=== PATIENT | male | born 1950 | race American Indian/Alaskan Native ===

== ENCOUNTER 2018-05-20 07:57 | Emergency (ER) | payer MEDICARE ==
--- NOTE | 2018-05-20 08:38 | Emergency Department Report ---
HPI - General Chief Complaint: Medical Clearance Time Seen by Provider: 05/20/18 08:28 - HPI HPI: Room 3 The patient is a 67-year-old male presenting with a chief complaint "pulled out trach. The patient is a resident of [facility] report the patient pulled out his trachea approximately 06:00 this morning. Per nursing, EMS placed a "cannula" in the stoma to keep it patent during transport. Location: Trach Duration: [See above] Quality: Dislodged Severity: Moderate Modifying factors: [see above] Context: [see above] Mode of transportation: [not driving] ED Past Medical Hx - Past Medical History Previous Medical History?: Yes Hx Hypertension: Yes Hx CVA: Yes Hx Congestive Heart Failure: Yes Hx Renal Disease: Yes Hx Seizures: Yes Additional medical history: Atrial fibrillation - Surgical History Past Surgical History?: Yes Additional Surgical History: Tracheostomy, PEG tube - Family History Family history: no significant - Social History Smoking Status: Unknown if ever smoked Substance Use Type: None ED Review of Systems ROS: Stated complaint: REPLACE TRACH Other details as noted in HPI Comment: Unobtainable due to pts medical conditions Physical Exam - Physical Exam Vital Signs: Vital Signs 05/20/18 05/20/18 08:15 08:22 Temperature 98.7 F 98.7 F Pulse Rate 75 Respiratory 12 Rate Blood Pressure 145/94 [Left] O2 Sat by Pulse 96 Oximetry Physical Exam: GENERAL: The patient is well-developed well-nourished male lying on stretcher not appearing to be in acute distress. [] HEENT: Normocephalic. Atraumatic. Extraocular motions are intact. Patient has moist mucous membranes. NECK: Supple. Trach collar in place CHEST/LUNGS: Clear to auscultation. There is no respiratory distress noted. HEART/CARDIOVASCULAR: Regular. There is no tachycardia. There is no gallop rub or murmur. ABDOMEN: Abdomen is soft, nontender. Patient has normal bowel sounds. There is no abdominal distention. SKIN: There is no rash. There is no edema. There is no diaphoresis. NEURO: The patient is awake and alert. MUSCULOSKELETAL: There is no evidence of acute injury. ED Course Vital Signs 05/20/18 05/20/18 08:15 08:22 Temperature 98.7 F 98.7 F Pulse Rate 75 Respiratory 12 Rate Blood Pressure 145/94 [Left] O2 Sat by Pulse 96 Oximetry ED Medical Decision Making - Radiology Data Radiology results: report reviewed (chest x-ray), image reviewed (chest x-ray) interpreted by me: Chest [id number] tube in appropriate position. No focal infiltrates, no pneumothorax [facility] [address] [place] [address] XRay Report Signed Patient: NOLVIA BONNER MR#: [id number] : 1950 Acct:[id number] Age/Sex: 67 / M ADM Date: 05/20/18 Loc: ED Attending Dr: Ordering Physician: RAMONA STALLINGS MD Date of Service: 05/20/18 Procedure(s): XR chest 1V ap Accession Number(s): [id number] cc: RAMONA STALLINGS MD Fluoro Time In Minutes: AP CHEST: HISTORY: Tracheostomy replacement Tracheostomy appears in good position at the level of the clavicles. Heart size is borderline. The aorta is ectatic. The lungs are clear. The bony structures are intact. IMPRESSION: Tracheostomy replacement. Borderline heart size. Ectatic aorta. Transcribed By: TTR Dictated By: RANDA LIMON JR, MD Electronically Authenticated By: RNADA LIMON JR, MD Signed Date/Time: 05/20/18945 DD/ 5 TD/TT: 05/20/18945 - Medical Decision Making Respiratory therapy was consult for trach replacement - Differential Diagnosis trach dislodged Critical care attestation.: If time is entered above; I have spent that time in minutes in the direct care of this critically ill patient, excluding procedure time. ED Disposition Clinical Impression: Attention to tracheostomy tube Disposition: DC/TX-70 ANOTHER TYPE HLTHCARE Is pt being admited?: No Does the pt Need Aspirin: No Condition: Stable Additional Instructions: Return to the emergency department immediately should you develop worsening symptoms, fever, inability to tolerate food or liquid or any other concerns. Referrals: PRIMARY CAREMD [Primary Care Provider] - 3-5 Days Time of Disposition: 09:51
--- NOTE | 2018-05-20 09:48 | XRay Report ---
AP CHEST: HISTORY: Tracheostomy replacement Tracheostomy appears in good position at the level of the clavicles. Heart size is borderline. The aorta is ectatic. The lungs are clear. The bony structures are intact. IMPRESSION: Tracheostomy replacement. Borderline heart size. Ectatic aorta.
[2018-05-20 11:22] VITALS: BP 116/76
== END 2018-05-20 11:10 | disposition other institution (70) ==
LOC: ED 07:57
DX: Z43.0 Encounter for attention to tracheostomy (principal); I11.0 Hypertensive heart disease with heart failure; I50.9 Heart failure, unspecified; I48.91 Unspecified atrial fibrillation; Z86.73 Personal history of transient ischemic attack (TIA), and cerebral infarction without residual deficits
CPT/HCPCS: 71045; 99283

== ENCOUNTER 2018-05-23 07:36 | Inpatient (IN) | payer MEDICARE ==
[2018-05-23] MEDS ORDERED: TYLENOL FEEDTUBE ONE (09:38)
[2018-05-23] MEDS ORDERED: NACL 0.9% 1000 ML 1,000 ML IV ONE (09:38)
[2018-05-23] MEDS ORDERED: NACL 0.9% 1000 ML 1,000 ML IV SCH (10:00)
[2018-05-23 10:11] LABS: Basophils # (Auto) 0.1 K/mm3 (0.0-0.1); Basophils % (Auto) 1.2 % (0.0-1.8); Eosinophils # (Auto) 0.1 K/mm3 (0.0-0.4); Eosinophils % (Auto) 1.2 % (0.0-4.3); Hematocrit 36.2 % (35.5-45.6); Hemoglobin 11.6 gm/dl (11.8-15.2); Lymphocytes # (Auto) 2.9 K/mm3 (1.2-5.4); Lymphocytes % (Auto) 28.8 % (13.4-35.0); Mean Corpuscular HGB Conc 32 % (32-34); Mean Corpuscular Hemoglobin 29 pg (28-32); Mean Corpuscular Volume 89 fl (84-94); Monocytes # (Auto) 1.1 K/mm3 (0.0-0.8); Monocytes % (Auto) 10.4 % (0.0-7.3); Platelet Count 548 K/mm3 (140-440); Red Blood Count 4.06 M/mm3 (3.65-5.03); Red Cell Distribution Width 20.7 % (13.2-15.2)
[2018-05-23 10:18] LABS: Alanine Aminotransferase 21 units/L (7-56); Albumin 3.2 g/dL (3.9-5); BUN/Creatinine Ratio 24; Blood Urea Nitrogen 31 mg/dL (9-20); Calcium 9.5 mg/dL (8.4-10.2); Hemolysis Index 0
--- NOTE | 2018-05-23 10:41 | Emergency Department Report ---
ED ENT HPI - General Chief complaint: Tube Replacement Stated complaint: TRACHEAL TUBE REMOVED Time Seen by Provider: 05/23/18 07:43 Source: EMS, old records reviewed Mode of arrival: Stretcher Limitations: Altered Mental Status, Physical Limitation - History of Present Illness Initial comments: 67-year-old male with a past medical history CHF, CVA, hypertension, A. fib, seizures, tracheostomy dependence presents to the hospital from [facility] in [place] for pulled out tracheostomy tube. Patient is in no acute distress. Nonverbal but follows basic commands. Previous medical record review and patient was here 04/27/18 for sepsis and tonsillitis with mild narrowing of the airway and was subsequently transferred to [place] for treatment. Represented here 05/20/18 with trach dislodgement. Replaced and pt d/ radha back to [place]. - Related Data Allergies Allergy/AdvReac Type Severity Reaction Status Date / Time No Known Allergies Allergy Unverified 04/27/18 16:07 ED Dental HPI - General Chief complaint: Tube Replacement Stated complaint: TRACHEAL TUBE REMOVED Time Seen by Provider: 05/23/18 07:43 Source: EMS, old records reviewed Mode of arrival: Stretcher Limitations: Altered Mental Status, Physical Limitation - Related Data Allergies Allergy/AdvReac Type Severity Reaction Status Date / Time No Known Allergies Allergy Unverified 04/27/18 16:07 ED Review of Systems ROS: Stated complaint: TRACHEAL TUBE REMOVED Other details as noted in HPI Comment: Unobtainable due to pts medical conditions (nonverbal) ED Past Medical Hx - Past Medical History Previous Medical History?: Yes Hx Hypertension: Yes Hx CVA: Yes Hx Congestive Heart Failure: Yes Hx Renal Disease: Yes Hx Seizures: Yes Additional medical history: Atrial fibrillation - Surgical History Past Surgical History?: Yes Additional Surgical History: Tracheostomy, PEG tube - Social History Smoking Status: Never Smoker Substance Use Type: None ED Physical Exam - General Limitations: Altered Mental Status, Physical Limitation - Other Other exam information: General: l physical limitation Head exam: Atraumatic, normocephalic Eyes exam: Normal appearancet ENT: Moist mucous membrane, tracheostomy stoma with part of trach in stoma Neck exam: Normal inspection, full range of motion, no meningismus nontender Respiratory exam: Clear to auscultation bilateral, no wheezes, rales, crackles no respiratory distress Cardiovascular: Tachycardic regular rhythm Abdomen: Soft, nondistended, positive headache. Nontender Extremity: Generalized muscle wasting and weakness Neurologic: Nonverbal. Overall weakness with muscle wasting. 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 Psychiatric: normal affect, normal mood Skin: Multiple decubitus ulcers without active signs of infection ED Course Vital Signs 05/23/18 05/23/18 05/23/18 07:53 07:54 08:00 Temperature 98.7 F Pulse Rate 105 H 106 H 103 H Respiratory 13 20 21 Rate Blood Pressure 127/93 122/86 O2 Sat by Pulse 99 98 Oximetry 05/23/18 05/23/18 05/23/18 09:00 09:34 10:00 Temperature 100.1 F H Pulse Rate 106 H 106 H Respiratory 22 23 Rate Blood Pressure 134/83 137/89 O2 Sat by Pulse 95 99 Oximetry 05/23/18 05/23/18 05/23/18 11:00 12:00 13:28 Temperature 98.4 F Pulse Rate 100 H 95 H Respiratory 19 19 Rate Blood Pressure 141/91 150/92 O2 Sat by Pulse 99 99 Oximetry - Consultations Consultation #1: 05/23/18 13:03 Case discussed with Barbara Urrutia with [facility]. Will evaluate patient. Repeat troponin pending 05/23/18 13:52 Rec admission for cardiac workup ED Medical Decision Making - Lab Data Result diagrams: 05/23/18 09:25 05/23/18 09:25 Lab Results 05/23/18 05/23/18 05/23/18 Range/Units 09:25 09:25 09:25 WBC 10.2 (4.5-11.0) K/mm3 RBC 4.06 (3.65-5.03) M/mm3 Hgb 11.6 L (11.8-15.2) gm/dl Hct 36.2 (35.5-45.6) % MCV 89 (84-94) fl MCH 29 (28-32) pg MCHC 32 (32-34) % RDW 20.7 H (13.2-15.2) % Plt Count 548 H (140-440) K/mm3 Lymph % (Auto) 28.8 (13.4-35.0) % Traill % (Auto) 10.4 H (0.0-7.3) % Eos % (Auto) 1.2 (0.0-4.3) % Baso % (Auto) 1.2 (0.0-1.8) % Lymph # 2.9 (1.2-5.4) K/mm3 Traill # 1.1 H (0.0-0.8) K/mm3 Eos # 0.1 (0.0-0.4) K/mm3 Baso # 0.1 (0.0-0.1) K/mm3 Seg Neutrophils % 58.4 (40.0-70.0) % Seg Neutrophils # 6.0 (1.8-7.7) K/mm3 VBG pH (7.320-7.420) Sodium 140 (137-145) mmol/L Potassium 4.5 (3.6-5.0) mmol/L Chloride 104.4 (98-107) mmol/L Carbon Dioxide 21 L (22-30) mmol/L Anion Gap 19 mmol/L BUN 31 H (9-20) mg/dL Creatinine 1.3 (0.8-1.5) mg/dL Estimated GFR > 60 ml/min BUN/Creatinine Ratio 24 % Glucose 110 H (75-100) mg/dL Lactic Acid (0.7-2.0) mmol/L Calcium 9.5 (8.4-10.2) mg/dL Magnesium 2.20 (1.7-2.3) mg/dL Total Bilirubin 0.70 (0.1-1.2) mg/dL AST 29 (5-40) units/L ALT 21 (7-56) units/L Alkaline Phosphatase 180 H (35-129) units/L Total Creatine Kinase 201 H (55-170) units/L CK-MB (CK-2) 33.8 H (0.0-4.0) ng/mL CK-MB (CK-2) Rel Index 16.8 H (0-4) Troponin T 0.281 H* (0.00-0.029) ng/mL Total Protein 8.7 H (6.3-8.2) g/dL Albumin 3.2 L (3.9-5) g/dL Albumin/Globulin Ratio 0.6 % Triglycerides 59 (2-149) mg/dL Cholesterol 112 (50-199) mg/dL LDL Cholesterol Direct 51 (50-130) mg/dL HDL Cholesterol 57 (40-59) mg/dL Cholesterol/HDL Ratio 1.96 % Urine Color (Yellow) Urine Turbidity (Clear) Urine pH (5.0-7.0) Ur Specific [place] (1.003-1.030) Urine Protein (Negative) mg/dL Urine Glucose (UA) (Negative) mg/dL Urine Ketones (Negative) mg/dL Urine Blood (Negative) Urine Nitrite (Negative) Urine Bilirubin (Negative) Urine Urobilinogen (<2.0) mg/dL Ur Leukocyte Esterase (Negative) Urine WBC (Auto) (0.0-6.0) /HPF Urine RBC (Auto) (0.0-6.0) /HPF U Epithel Cells (Auto) (0-13.0) /HPF Urine Mucus /HPF 05/23/18 05/23/18 05/23/18 Range/Units 09:43 09:43 11:16 WBC (4.5-11.0) K/mm3 RBC (3.65-5.03) M/mm3 Hgb (11.8-15.2) gm/dl Hct (35.5-45.6) % MCV (84-94) fl MCH (28-32) pg MCHC (32-34) % RDW (13.2-15.2) % Plt Count (140-440) K/mm3 Lymph % (Auto) (13.4-35.0) % Traill % (Auto) (0.0-7.3) % Eos % (Auto) (0.0-4.3) % Baso % (Auto) (0.0-1.8) % Lymph # (1.2-5.4) K/mm3 Traill # (0.0-0.8) K/mm3 Eos # (0.0-0.4) K/mm3 Baso # (0.0-0.1) K/mm3 Seg Neutrophils % (40.0-70.0) % Seg Neutrophils # (1.8-7.7) K/mm3 VBG pH 7.383 (7.320-7.420) Sodium (137-145) mmol/L Potassium (3.6-5.0) mmol/L Chloride (98-107) mmol/L Carbon Dioxide (22-30) mmol/L Anion Gap mmol/L BUN (9-20) mg/dL Creatinine (0.8-1.5) mg/dL Estimated GFR ml/min BUN/Creatinine Ratio % Glucose (75-100) mg/dL Lactic Acid 2.50 H* 2.20 H* (0.7-2.0) mmol/L Calcium (8.4-10.2) mg/dL Magnesium (1.7-2.3) mg/dL Total Bilirubin (0.1-1.2) mg/dL AST (5-40) units/L ALT (7-56) units/L Alkaline Phosphatase (35-129) units/L Total Creatine Kinase (55-170) units/L CK-MB (CK-2) (0.0-4.0) ng/mL CK-MB (CK-2) Rel Index (0-4) Troponin T (0.00-0.029) ng/mL Total Protein (6.3-8.2) g/dL Albumin (3.9-5) g/dL Albumin/Globulin Ratio % Triglycerides (2-149) mg/dL Cholesterol (50-199) mg/dL LDL Cholesterol Direct (50-130) mg/dL HDL Cholesterol (40-59) mg/dL Cholesterol/HDL Ratio % Urine Color (Yellow) Urine Turbidity (Clear) Urine pH (5.0-7.0) Ur Specific [place] (1.003-1.030) Urine Protein (Negative) mg/dL Urine Glucose (UA) (Negative) mg/dL Urine Ketones (Negative) mg/dL Urine Blood (Negative) Urine Nitrite (Negative) Urine Bilirubin (Negative) Urine Urobilinogen (<2.0) mg/dL Ur Leukocyte Esterase (Negative) Urine WBC (Auto) (0.0-6.0) /HPF Urine RBC (Auto) (0.0-6.0) /HPF U Epithel Cells (Auto) (0-13.0) /HPF Urine Mucus /HPF 05/23/18 05/23/18 Range/Units 11:32 12:06 WBC (4.5-11.0) K/mm3 RBC (3.65-5.03) M/mm3 Hgb (11.8-15.2) gm/dl Hct (35.5-45.6) % MCV (84-94) fl MCH (28-32) pg MCHC (32-34) % RDW (13.2-15.2) % Plt Count (140-440) K/mm3 Lymph % (Auto) (13.4-35.0) % Traill % (Auto) (0.0-7.3) % Eos % (Auto) (0.0-4.3) % Baso % (Auto) (0.0-1.8) % Lymph # (1.2-5.4) K/mm3 Traill # (0.0-0.8) K/mm3 Eos # (0.0-0.4) K/mm3 Baso # (0.0-0.1) K/mm3 Seg Neutrophils % (40.0-70.0) % Seg Neutrophils # (1.8-7.7) K/mm3 VBG pH (7.320-7.420) Sodium (137-145) mmol/L Potassium (3.6-5.0) mmol/L Chloride (98-107) mmol/L Carbon Dioxide (22-30) mmol/L Anion Gap mmol/L BUN (9-20) mg/dL Creatinine (0.8-1.5) mg/dL Estimated GFR ml/min BUN/Creatinine Ratio % Glucose (75-100) mg/dL Lactic Acid 1.60 (0.7-2.0) mmol/L Calcium (8.4-10.2) mg/dL Magnesium (1.7-2.3) mg/dL Total Bilirubin (0.1-1.2) mg/dL AST (5-40) units/L ALT (7-56) units/L Alkaline Phosphatase (35-129) units/L Total Creatine Kinase (55-170) units/L CK-MB (CK-2) (0.0-4.0) ng/mL CK-MB (CK-2) Rel Index (0-4) Troponin T (0.00-0.029) ng/mL Total Protein (6.3-8.2) g/dL Albumin (3.9-5) g/dL Albumin/Globulin Ratio % Triglycerides (2-149) mg/dL Cholesterol (50-199) mg/dL LDL Cholesterol Direct (50-130) mg/dL HDL Cholesterol (40-59) mg/dL Cholesterol/HDL Ratio % Urine Color Yellow (Yellow) Urine Turbidity Slightly-cloudy (Clear) Urine pH 6.0 (5.0-7.0) Ur Specific [place] 1.015 (1.003-1.030) Urine Protein 30 mg/dl (Negative) mg/dL Urine Glucose (UA) Neg (Negative) mg/dL Urine Ketones Neg (Negative) mg/dL Urine Blood Neg (Negative) Urine Nitrite Neg (Negative) Urine Bilirubin Neg (Negative) Urine Urobilinogen 2.0 (<2.0) mg/dL Ur Leukocyte Esterase Mod (Negative) Urine WBC (Auto) 20.0 H (0.0-6.0) /HPF Urine RBC (Auto) 2.0 (0.0-6.0) /HPF U Epithel Cells (Auto) 10.0 (0-13.0) /HPF Urine Mucus Few /HPF - EKG Data -: EKG Interpreted by Al EKG shows normal: sinus rhythm, axis (qrs axis -14), QRS complexes (qrse 106), ST-T waves (lat t wave inv, pvc's) Rate: normal (96) - EKG Data When compared to previous EKG there are: changes noted (04/27/18 lat t waves upright) - Radiology Data Radiology results: report reviewed AP CHEST: HISTORY: Trach placement The tracheostomy is in position at the level of the clavicles. Mild cardiomegaly is present. The lungs are clear. No evidence for pleural fluid or pneumothorax. IMPRESSION: Tracheostomy. Mild cardiomegaly. Lungs clear. AP AND LATERAL SOFT TISSUES OF THE NECK: History: Trach placement. Severely limited exam particularly on the lateral view. A tracheostomy is in place with no discrete abnormality detected. IMPRESSION: Limited exam. No abnormality identified. - Medical Decision Making Patient initially presented here for tracheostomy replacement after patient pulled out tracheostomy tube. Noted to be tachycardic upon presentation. Borderline rectal temp therefore additional labs are obtained. Patient patient has a UTI with dehydration and elevated lactic acid. Heart rate and lactic acid level improving with IV fluid (30mk/kg as per sepsis protocol) and Tylenol. Rocephin initiated for UTI. Blood and Urine culures pending. EKG obtained and revealed new lateral flipped T waves compared to previous. Troponin added to initial blood draw reveals elevation. Aspirin ordered. Cardiology consultated Critical Care Time: No Critical care attestation.: If time is entered above; I have spent that time in minutes in the direct care of this critically ill patient, excluding procedure time. ED Disposition Clinical Impression: Tracheostomy complication, UTI (urinary tract infection), Elevated troponin, Acute electrocardiogram changes Disposition: DC-09 OP ADMIT IP TO THIS HOSP Is pt being admited?: Yes Condition: Stable Time of Disposition: 13:53 (Dr Lopez/hosp)
[2018-05-23] MEDS ORDERED: NACL 0.9% 1000 ML IV ONE (11:04)
[2018-05-23 11:50] LABS: Bilirubin,Urine NEG (Negative); Blood,Urine NEG (Negative); Color,Urine Yellow (Yellow); Mucus,Urine FEW /HPF
[2018-05-23] MEDS ORDERED: ROCEPHIN/NS 1 GM/50 ML 1 GM/50 ML BAG IV ONE (11:51)
[2018-05-23 12:27] LABS: Creatine Kinase MB 33.8 ng/mL (0.0-4.0)
[2018-05-23] MEDS ORDERED: ASPIRIN FEEDTUBE ONE (12:52)
[2018-05-23 13:38] LABS: Chol/HDL Ratio 1.96 %
--- NOTE | 2018-05-23 14:10 | Consultation ---
History of Present Illness Consult date: 05/23/18 Requesting physician: FREDRICK OWENS Consult reason: elevated troponin History of present illness: The pt is a 67-year-old male with a past medical history significant for CVA, hypertension, seizures, tracheostomy dependence. He is previously unknown to our practice. He presented to the hospital from [facility] for pulled out tracheostomy tube. Patient is in no acute distress. Nonverbal but follows basic commands. Previous medical record review and patient was here 04/27/18 for sepsis and tonsillitis with mild narrowing of the airway and was subsequently transferred to [place] for treatment. Represented here 05/20/18 with trach dislodgement. Replaced and pt d/radha back to [place]. Pt was noted to have sinus tachycardia with elevated troponin and new t-wave inversions in lateral leads on ECG and thus cardiology has been consulted. Past History Past Medical History: hypertension, seizures, stroke, other (trach) Medications and Allergies Allergies Allergy/AdvReac Type Severity Reaction Status Date / Time No Known Allergies Allergy Unverified 04/27/18 16:07 Review of Systems ROS unobtainable: due to mental status (pt denies any complaints, NAD) Physical Examination Vital Signs Pulse Resp 105 H 13 05/23/18 07:53 05/23/18 07:53 General appearance: no acute distress, other (nonverbal, trached) HEENT: Positive: PERRL, Normocephaly, Mucus Membranes Moist Cardiac: Positive: Reg Rate and Rhythm, S1/S2 Lungs: Positive: clear to auscultation Neuro: Positive: Other (nonverbal, trached ) Abdomen: Negative: Tender Skin: Negative: Rash Musculoskeletal: No Pain Extremities: Present: edema (trace BLE ) Results 05/23/18 09:25 05/23/18 09:25 Cardiac Enzymes 05/23/18 05/23/18 Range/Units 09:25 09:25 AST 29 (5-40) units/L CK-MB (CK-2) 33.8 H (0.0-4.0) ng/mL Lipids 05/23/18 Range/Units 09:25 Triglycerides 59 (2-149) mg/dL Cholesterol 112 (50-199) mg/dL HDL Cholesterol 57 (40-59) mg/dL Cholesterol/HDL Ratio 1.96 % CBC 05/23/18 Range/Units 09:25 WBC 10.2 (4.5-11.0) K/mm3 RBC 4.06 (3.65-5.03) M/mm3 Hgb 11.6 L (11.8-15.2) gm/dl Hct 36.2 (35.5-45.6) % Plt Count 548 H (140-440) K/mm3 Lymph # 2.9 (1.2-5.4) K/mm3 [place] # 1.1 H (0.0-0.8) K/mm3 Eos # 0.1 (0.0-0.4) K/mm3 Baso # 0.1 (0.0-0.1) K/mm3 Comprehensive Metabolic Panel 05/23/18 Range/Units 09:25 Sodium 140 (137-145) mmol/L Potassium 4.5 (3.6-5.0) mmol/L Chloride 104.4 (98-107) mmol/L Carbon Dioxide 21 L (22-30) mmol/L BUN 31 H (9-20) mg/dL Creatinine 1.3 (0.8-1.5) mg/dL Glucose 110 H (75-100) mg/dL Calcium 9.5 (8.4-10.2) mg/dL AST 29 (5-40) units/L ALT 21 (7-56) units/L Alkaline Phosphatase 180 H (35-129) units/L Total Protein 8.7 H (6.3-8.2) g/dL Albumin 3.2 L (3.9-5) g/dL - Imaging and Cardiology Echo: pending EKG: report reviewed, image reviewed EKG interpretations - Telemetry EKG Rhythm: Sinus Rhythm - EKG Sinus rhythms and dysrhythmias: sinus rhythm Repolarization changes or abnormalities: ST or T wave suggestive of ischemia (t- wave inversions in lateral leads) Assessment and Plan Admit to telemetry per hospitalists. Obtain echo. Cont to trend Alex and repeat ECG in AM. The patient has been seen in conjunction with Dr. Lay who agrees with the assessment and plan of care. - Patient Problems (1) Abnormal ECG Current Visit: Yes Status: Acute (2) Elevated troponin Current Visit: Yes Status: Acute (3) UTI (urinary tract infection) Current Visit: Yes Status: Acute (4) Lactic acidosis Current Visit: Yes Status: Acute (5) History of CVA (cerebrovascular accident) Current Visit: Yes Status: Chronic (6) History of seizures Current Visit: Yes Status: Chronic (7) Tracheostomy in place Current Visit: Yes Status: Chronic (8) HTN (hypertension) Current Visit: Yes Status: Chronic
[2018-05-23 15:17] LABS: Creatine Kinase MB 29.9 ng/mL (0.0-4.0)
[2018-05-23] MEDS ORDERED: PERCOCET 5/325 PO PRN ×2 (17:57→18:06)
[2018-05-23] MEDS ORDERED: NON-FORMULARY (Omeprazole [Omeprazole] 20 MG) PO SCH (18:00)
[2018-05-23] MEDS ORDERED: TRANSDERM-SCOP TD SCH (18:00)
[2018-05-23] MEDS ORDERED: NON-FORMULARY (Fluoxetine Hcl [Fluoxetine] 20 MG) PO SCH (18:00)
[2018-05-23] MEDS ORDERED: SANTYL TP SCH (18:00)
[2018-05-23] MEDS ORDERED: TYLENOL PO PRN (18:06)
[2018-05-23] MEDS ORDERED: ZOFRAN IV PRN (18:06)
[2018-05-23] MEDS ORDERED: SODIUM CHLORIDE FLUSH SYRINGE 10 ML IV PRN (18:06)
[2018-05-23] MEDS ORDERED: MORPHINE IV PRN (18:06)
[2018-05-23] MEDS: NORVASC PO SCH (18:49)
[2018-05-23] MEDS: MAG-OX PO SCH (18:49)
[2018-05-23] MEDS: PROzac PO SCH (18:49)
[2018-05-23] MEDS: NACL 0.9% 1000 ML 1,000 ML IV SCH (18:49)
[2018-05-23] MEDS: CORDARONE PO SCH (18:50)
[2018-05-23] MEDS ORDERED: ROCEPHIN/NS 2 GM/100 ML 2 GM/100 ML BAG IV SCH (22:00)
[2018-05-23] MEDS: PEPCID IV SCH (22:32)
[2018-05-23] MEDS: ELIQUIS PO SCH (22:33)
[2018-05-23] MEDS: LOPRESSOR PO SCH (22:33)
[2018-05-23] MEDS: SODIUM CHLORIDE FLUSH SYRINGE 10 ML IV SCH (22:34)
[2018-05-23] MEDS: COLACE PO SCH (22:35)
[2018-05-24 06:07] LABS: Basophils # (Auto) 0.1 K/mm3 (0.0-0.1); Basophils % (Auto) 1.4 % (0.0-1.8); Eosinophils # (Auto) 0.2 K/mm3 (0.0-0.4); Eosinophils % (Auto) 2.7 % (0.0-4.3); Hematocrit 31.2 % (35.5-45.6); Hemoglobin 9.9 gm/dl (11.8-15.2); Lymphocytes # (Auto) 1.5 K/mm3 (1.2-5.4); Lymphocytes % (Auto) 18.2 % (13.4-35.0); Mean Corpuscular HGB Conc 32 % (32-34); Mean Corpuscular Hemoglobin 28 pg (28-32); Mean Corpuscular Volume 89 fl (84-94); Monocytes # (Auto) 0.9 K/mm3 (0.0-0.8); Monocytes % (Auto) 10.6 % (0.0-7.3); Platelet Count 451 K/mm3 (140-440); Red Blood Count 3.52 M/mm3 (3.65-5.03); Red Cell Distribution Width 20.6 % (13.2-15.2)
--- NOTE | 2018-05-24 06:09 | History and Physical Report ---
History of Present Illness Date of examination: 05/24/18 Date of admission: 05/23/18 13:54 Chief complaint: Dislodgement of Trach History of present illness: History of Present Illness: 67-year-old male with a past medical history CHF, CVA, hypertension, A. fib, seizures, tracheostomy dependence presents to the hospital from [facility] for pulled out tracheostomy tube. Patient is in no acute distress. Nonverbal but follows basic commands. Previous medical record review and patient was here 04/27/18 for sepsis and tonsillitis with mild narrowing of the airway and was subsequently transferred to [place] for treatment. Represented here 05/20/18 with trach dislodgement. Replaced and pt d/ radha back to [place]. Past Medical History Previous Medical History?: Yes Hx Hypertension: Yes Hx CVA: Yes Hx Congestive Heart Failure: Yes Hx Renal Disease: Yes Hx Seizures: Yes Additional medical history: Atrial fibrillation Surgical History Past Surgical History?: Yes Additional Surgical History: Tracheostomy, PEG tube Social History Smoking Status: Never Smoker Substance Use Type: None Review of Systems ROS: Stated complaint: TRACHEAL TUBE REMOVED Other details as noted in HPI Comment: Unobtainable due to pts medical conditions (nonverbal) Past History Past Medical History: hypertension, seizures, stroke, other (trach) Medications and Allergies Allergies Allergy/AdvReac Type Severity Reaction Status Date / Time No Known Allergies Allergy Unverified 04/27/18 16:07 Home Medications Medication Instructions Recorded Confirmed Last Taken Type Amiodarone [Cordarone 200 MG TAB] 200 mg PO DAILY 05/23/18 05/23/18 Unknown History Amlodipine Besylate [Norvasc] 10 mg PO DAILY 05/23/18 05/23/18 Unknown History Apixaban [Eliquis] 5 mg PO BID 05/23/18 05/23/18 Unknown History Atorvastatin Calcium [Lipitor] 40 mg PO QHS 05/23/18 05/23/18 Unknown History Collagenase [Santyl] 1 applicatio TP QDAY 05/23/18 05/23/18 Unknown History Docusate Sodium 50 mg PO BID 05/23/18 05/23/18 Unknown History FLUoxetine HCL [FLUoxetine] 20 mg PO DAILY 05/23/18 05/23/18 Unknown History Magnesium Oxide [Mag-Ox] 400 mg PO QDAY 05/23/18 05/23/18 Unknown History Metoprolol Tartrate 25 mg PO BID 05/23/18 05/23/18 Unknown History Omeprazole 20 mg PO DAILY 05/23/18 05/23/18 Unknown History Scopolamine [Transderm-Scop] 1 each TD Q3D 05/23/18 05/23/18 Unknown History oxyCODONE /ACETAMINOPHEN [Percocet 1 tab PO Q6HR PRN 05/23/18 05/23/18 Unknown History 5/325] Active Meds: Active Medications Acetaminophen (Tylenol) 650 mg PO Q4H PRN PRN Reason: Pain MILD(1-3)/Fever >100.5/SHAW Amiodarone HCl (Cordarone) 200 mg PO DAILY [facility] Last Admin: 05/23/18 18:50 Dose: 200 mg Amlodipine Besylate (Norvasc) 10 mg PO DAILY [facility] Last Admin: 05/23/18 18:49 Dose: 10 mg Apixaban (Eliquis) 5 mg PO BID [facility]; Protocol Last Admin: 05/23/18 22:33 Dose: 5 mg Atorvastatin Calcium (Lipitor) 40 mg PO QHS [facility] Last Admin: 05/23/18 22:32 Dose: 40 mg Collagenase (Santyl) 1 applic TP QDAY [facility] Docusate Sodium (Colace) 50 mg PO BID [facility] Last Admin: 05/23/18 22:35 Dose: Not Given Famotidine (Pepcid) 20 mg IV BID [facility] Last Admin: 05/23/18 22:32 Dose: 20 mg Fluoxetine HCl (Prozac) 20 mg PO QDAY [facility] Last Admin: 05/23/18 18:49 Dose: 20 mg Sodium Chloride (Nacl 0.9% 1000 Ml) 1,000 mls @ 75 mls/hr IV DIRECT [facility] Last Admin: 05/23/18 18:49 Dose: 75 mls/hr Ceftriaxone Sodium (Rocephin/Ns 2 Gm/100 Ml) 2 gm in 100 mls @ 200 mls/hr IV Q12HR [facility]; Protocol Last Admin: 05/23/18 22:34 Dose: 200 mls/hr Magnesium Oxide (Mag-Ox) 400 mg PO QDAY [facility] Last Admin: 05/23/18 18:49 Dose: 400 mg Metoprolol Tartrate (Lopressor) 25 mg PO BID [facility] Last Admin: 05/23/18 22:33 Dose: 25 mg Morphine Sulfate (Morphine) 2 mg IV Q4H PRN PRN Reason: Pain, Moderate (4-6) Ondansetron HCl (Zofran) 4 mg IV Q8H PRN PRN Reason: Nausea And Vomiting Oxycodone/Acetaminophen (Percocet 5/325) 1 tab PO Q6HR PRN PRN Reason: Pain Oxycodone/Acetaminophen (Percocet 5/325) 1 tab PO Q6H PRN PRN Reason: Pain, Moderate (4-6) Scopolamine (Transderm-Scop) 1 each TD Q3D KAT Sodium Chloride (Sodium Chloride Flush Syringe 10 Ml) 10 ml IV BID KAT Last Admin: 05/23/18 22:34 Dose: 10 ml Sodium Chloride (Sodium Chloride Flush Syringe 10 Ml) 10 ml IV PRN PRN PRN Reason: LINE FLUSH Exam - Physical Exam Narrative exam: Trach in place - Constitutional Vitals: Temp Pulse Resp BP Pulse Ox 97.5 F L 61 18 125/71 99 05/23/18 16:55 05/24/18 00:29 05/24/18 00:29 05/24/18 00:29 05/24/18 04:13 General appearance: Present: no acute distress, well-nourished - EENT Eyes: Present: PERRL ENT: hearing intact, clear oral mucosa, other (trach in place) - Neck Neck: Present: supple, normal ROM - Respiratory Respiratory effort: normal Respiratory: bilateral: CTA - Cardiovascular Heart rate: 76 Rhythm: irregularly irregular Heart Sounds: Present: S1 & S2. Absent: rub, click - Extremities Extremities: no ischemia, pulses intact, pulses symmetrical, No edema Peripheral Pulses: within normal limits - Abdominal General gastrointestinal: Present: soft, non-tender, non-distended, normal bowel sounds Male genitourinary: Present: normal - Integumentary Integumentary: Present: clear, warm, dry - Musculoskeletal Musculoskeletal: generalized weakness - Psychiatric Psychiatric: depressed - Neurologic Neurologic: CNII-XII intact, focal deficits, other (Nonverbal) Results - Labs CBC & Chem 7: 05/24/18 05:43 05/23/18 09:25 Labs: Laboratory Last Values WBC 10.2 K/mm3 (4.5-11.0) 05/23/18 09:25 RBC 4.06 M/mm3 (3.65-5.03) 05/23/18 09:25 Hgb 11.6 gm/dl (11.8-15.2) L 05/23/18 09:25 Hct 36.2 % (35.5-45.6) 05/23/18 09:25 MCV 89 fl (84-94) 05/23/18 09:25 MCH 29 pg (28-32) 05/23/18 09:25 MCHC 32 % (32-34) 05/23/18 09:25 RDW 20.7 % (13.2-15.2) H 05/23/18 09:25 Plt Count 548 K/mm3 (140-440) H 05/23/18 09:25 Lymph % (Auto) 28.8 % (13.4-35.0) 05/23/18 09:25 [place] % (Auto) 10.4 % (0.0-7.3) H 05/23/18 09:25 Eos % (Auto) 1.2 % (0.0-4.3) 05/23/18 09:25 Baso % (Auto) 1.2 % (0.0-1.8) 05/23/18 09:25 Lymph # 2.9 K/mm3 (1.2-5.4) 05/23/18 09:25 [place] # 1.1 K/mm3 (0.0-0.8) H 05/23/18 09:25 Eos # 0.1 K/mm3 (0.0-0.4) 05/23/18 09:25 Baso # 0.1 K/mm3 (0.0-0.1) 05/23/18 09:25 Seg Neutrophils % 58.4 % (40.0-70.0) 05/23/18 09:25 Seg Neutrophils # 6.0 K/mm3 (1.8-7.7) 05/23/18 09:25 VBG pH 7.383 (7.320-7.420) 05/23/18 09:43 Sodium 140 mmol/L (137-145) 05/23/18 09:25 Potassium 4.5 mmol/L (3.6-5.0) 05/23/18 09:25 Chloride 104.4 mmol/L (98-107) 05/23/18 09:25 Carbon Dioxide 21 mmol/L (22-30) L 05/23/18 09:25 Anion Gap 19 mmol/L 05/23/18 09:25 BUN 31 mg/dL (9-20) H 05/23/18 09:25 Creatinine 1.3 mg/dL (0.8-1.5) 05/23/18 09:25 Estimated GFR > 60 ml/min 05/23/18 09:25 BUN/Creatinine Ratio 24 % 05/23/18 09:25 Glucose 110 mg/dL (75-100) H 05/23/18 09:25 POC Glucose 94 (70-105) 05/23/18 16:48 Lactic Acid 0.90 mmol/L (0.7-2.0) 05/23/18 19:49 Calcium 9.5 mg/dL (8.4-10.2) 05/23/18 09:25 Magnesium 2.20 mg/dL (1.7-2.3) 05/23/18 09:25 Total Bilirubin 0.70 mg/dL (0.1-1.2) 05/23/18 09:25 AST 29 units/L (5-40) 05/23/18 09:25 ALT 21 units/L (7-56) 05/23/18 09:25 Alkaline Phosphatase 180 units/L (35-129) H 05/23/18 09:25 Total Creatine Kinase 188 units/L (55-170) H 05/23/18 14:35 CK-MB (CK-2) 29.9 ng/mL (0.0-4.0) H 05/23/18 14:35 CK-MB (CK-2) Rel Index 15.9 (0-4) H 05/23/18 14:35 Troponin T 0.209 ng/mL (0.00-0.029) H* D 05/23/18 12:54 Total Protein 8.7 g/dL (6.3-8.2) H 05/23/18 09:25 Albumin 3.2 g/dL (3.9-5) L 05/23/18 09:25 Albumin/Globulin Ratio 0.6 % 05/23/18 09:25 Triglycerides 59 mg/dL (2-149) 05/23/18 09:25 Cholesterol 112 mg/dL (50-199) 05/23/18 09:25 LDL Cholesterol Direct 51 mg/dL (50-130) 05/23/18 09:25 HDL Cholesterol 57 mg/dL (40-59) 05/23/18 09:25 Cholesterol/HDL Ratio 1.96 % 05/23/18 09:25 Urine Color Yellow (Yellow) 05/23/18 11:32 Urine Turbidity Slightly-cloudy (Clear) 05/23/18 11:32 Urine pH 6.0 (5.0-7.0) 05/23/18 11:32 Ur Specific [place] 1.015 (1.003-1.030) 05/23/18 11:32 Urine Protein 30 mg/dl mg/dL (Negative) 05/23/18 11:32 Urine Glucose (UA) Neg mg/dL (Negative) 05/23/18 11:32 Urine Ketones Neg mg/dL (Negative) 05/23/18 11:32 Urine Blood Neg (Negative) 05/23/18 11:32 Urine Nitrite Neg (Negative) 05/23/18 11:32 Urine Bilirubin Neg (Negative) 05/23/18 11:32 Urine Urobilinogen 2.0 mg/dL (<2.0) 05/23/18 11:32 Ur Leukocyte Esterase Mod (Negative) 05/23/18 11:32 Urine WBC (Auto) 20.0 /HPF (0.0-6.0) H 05/23/18 11:32 Urine RBC (Auto) 2.0 /HPF (0.0-6.0) 05/23/18 11:32 U Epithel Cells (Auto) 10.0 /HPF (0-13.0) 05/23/18 11:32 Urine Mucus Few /HPF 05/23/18 11:32 Short CBC 05/23/18 05/23/18 05/23/18 Range/Units 09:25 09:25 09:25 WBC 10.2 (4.5-11.0) K/mm3 RBC 4.06 (3.65-5.03) M/mm3 Hgb 11.6 L (11.8-15.2) gm/dl Hct 36.2 (35.5-45.6) % MCV 89 (84-94) fl MCH 29 (28-32) pg MCHC 32 (32-34) % RDW 20.7 H (13.2-15.2) % Plt Count 548 H (140-440) K/mm3 Lymph % (Auto) 28.8 (13.4-35.0) % [place] % (Auto) 10.4 H (0.0-7.3) % Eos % (Auto) 1.2 (0.0-4.3) % Baso % (Auto) 1.2 (0.0-1.8) % Lymph # 2.9 (1.2-5.4) K/mm3 [place] # 1.1 H (0.0-0.8) K/mm3 Eos # 0.1 (0.0-0.4) K/mm3 Baso # 0.1 (0.0-0.1) K/mm3 Seg Neutrophils % 58.4 (40.0-70.0) % Seg Neutrophils # 6.0 (1.8-7.7) K/mm3 VBG pH (7.320-7.420) Sodium 140 (137-145) mmol/L Potassium 4.5 (3.6-5.0) mmol/L Chloride 104.4 (98-107) mmol/L Carbon Dioxide 21 L (22-30) mmol/L Anion Gap 19 mmol/L BUN 31 H (9-20) mg/dL Creatinine 1.3 (0.8-1.5) mg/dL Estimated GFR > 60 ml/min BUN/Creatinine Ratio 24 % Glucose 110 H (75-100) mg/dL POC Glucose (70-105) Lactic Acid (0.7-2.0) mmol/L Calcium 9.5 (8.4-10.2) mg/dL Magnesium 2.20 (1.7-2.3) mg/dL Total Bilirubin 0.70 (0.1-1.2) mg/dL AST 29 (5-40) units/L ALT 21 (7-56) units/L Alkaline Phosphatase 180 H (35-129) units/L Total Creatine Kinase 201 H (55-170) units/L CK-MB (CK-2) 33.8 H (0.0-4.0) ng/mL CK-MB (CK-2) Rel Index 16.8 H (0-4) Troponin T 0.281 H* (0.00-0.029) ng/mL Total Protein 8.7 H (6.3-8.2) g/dL Albumin 3.2 L (3.9-5) g/dL Albumin/Globulin Ratio 0.6 % Triglycerides 59 (2-149) mg/dL Cholesterol 112 (50-199) mg/dL LDL Cholesterol Direct 51 (50-130) mg/dL HDL Cholesterol 57 (40-59) mg/dL Cholesterol/HDL Ratio 1.96 % Urine Color (Yellow) Urine Turbidity (Clear) Urine pH (5.0-7.0) Ur Specific [place] (1.003-1.030) Urine Protein (Negative) mg/dL Urine Glucose (UA) (Negative) mg/dL Urine Ketones (Negative) mg/dL Urine Blood (Negative) Urine Nitrite (Negative) Urine Bilirubin (Negative) Urine Urobilinogen (<2.0) mg/dL Ur Leukocyte Esterase (Negative) Urine WBC (Auto) (0.0-6.0) /HPF Urine RBC (Auto) (0.0-6.0) /HPF U Epithel Cells (Auto) (0-13.0) /HPF Urine Mucus /HPF 05/23/18 05/23/18 05/23/18 Range/Units 09:43 09:43 11:16 WBC (4.5-11.0) K/mm3 RBC (3.65-5.03) M/mm3 Hgb (11.8-15.2) gm/dl Hct (35.5-45.6) % MCV (84-94) fl MCH (28-32) pg MCHC (32-34) % RDW (13.2-15.2) % Plt Count (140-440) K/mm3 Lymph % (Auto) (13.4-35.0) % [place] % (Auto) (0.0-7.3) % Eos % (Auto) (0.0-4.3) % Baso % (Auto) (0.0-1.8) % Lymph # (1.2-5.4) K/mm3 [place] # (0.0-0.8) K/mm3 Eos # (0.0-0.4) K/mm3 Baso # (0.0-0.1) K/mm3 Seg Neutrophils % (40.0-70.0) % Seg Neutrophils # (1.8-7.7) K/mm3 VBG pH 7.383 (7.320-7.420) Sodium (137-145) mmol/L Potassium (3.6-5.0) mmol/L Chloride (98-107) mmol/L Carbon Dioxide (22-30) mmol/L Anion Gap mmol/L BUN (9-20) mg/dL Creatinine (0.8-1.5) mg/dL Estimated GFR ml/min BUN/Creatinine Ratio % Glucose (75-100) mg/dL POC Glucose (70-105) Lactic Acid 2.50 H* 2.20 H* (0.7-2.0) mmol/L Calcium (8.4-10.2) mg/dL Magnesium (1.7-2.3) mg/dL Total Bilirubin (0.1-1.2) mg/dL AST (5-40) units/L ALT (7-56) units/L Alkaline Phosphatase (35-129) units/L Total Creatine Kinase (55-170) units/L CK-MB (CK-2) (0.0-4.0) ng/mL CK-MB (CK-2) Rel Index (0-4) Troponin T (0.00-0.029) ng/mL Total Protein (6.3-8.2) g/dL Albumin (3.9-5) g/dL Albumin/Globulin Ratio % Triglycerides (2-149) mg/dL Cholesterol (50-199) mg/dL LDL Cholesterol Direct (50-130) mg/dL HDL Cholesterol (40-59) mg/dL Cholesterol/HDL Ratio % Urine Color (Yellow) Urine Turbidity (Clear) Urine pH (5.0-7.0) Ur Specific [place] (1.003-1.030) Urine Protein (Negative) mg/dL Urine Glucose (UA) (Negative) mg/dL Urine Ketones (Negative) mg/dL Urine Blood (Negative) Urine Nitrite (Negative) Urine Bilirubin (Negative) Urine Urobilinogen (<2.0) mg/dL Ur Leukocyte Esterase (Negative) Urine WBC (Auto) (0.0-6.0) /HPF Urine RBC (Auto) (0.0-6.0) /HPF U Epithel Cells (Auto) (0-13.0) /HPF Urine Mucus /HPF 05/23/18 05/23/18 05/23/18 Range/Units 11:32 12:06 12:54 WBC (4.5-11.0) K/mm3 RBC (3.65-5.03) M/mm3 Hgb (11.8-15.2) gm/dl Hct (35.5-45.6) % MCV (84-94) fl MCH (28-32) pg MCHC (32-34) % RDW (13.2-15.2) % Plt Count (140-440) K/mm3 Lymph % (Auto) (13.4-35.0) % [place] % (Auto) (0.0-7.3) % Eos % (Auto) (0.0-4.3) % Baso % (Auto) (0.0-1.8) % Lymph # (1.2-5.4) K/mm3 [place] # (0.0-0.8) K/mm3 Eos # (0.0-0.4) K/mm3 Baso # (0.0-0.1) K/mm3 Seg Neutrophils % (40.0-70.0) % Seg Neutrophils # (1.8-7.7) K/mm3 VBG pH (7.320-7.420) Sodium (137-145) mmol/L Potassium (3.6-5.0) mmol/L Chloride (98-107) mmol/L Carbon Dioxide (22-30) mmol/L Anion Gap mmol/L BUN (9-20) mg/dL Creatinine (0.8-1.5) mg/dL Estimated GFR ml/min BUN/Creatinine Ratio % Glucose (75-100) mg/dL POC Glucose (70-105) Lactic Acid 1.60 (0.7-2.0) mmol/L Calcium (8.4-10.2) mg/dL Magnesium (1.7-2.3) mg/dL Total Bilirubin (0.1-1.2) mg/dL AST (5-40) units/L ALT (7-56) units/L Alkaline Phosphatase (35-129) units/L Total Creatine Kinase (55-170) units/L CK-MB (CK-2) (0.0-4.0) ng/mL CK-MB (CK-2) Rel Index (0-4) Troponin T 0.209 H* D (0.00-0.029) ng/mL Total Protein (6.3-8.2) g/dL Albumin (3.9-5) g/dL Albumin/Globulin Ratio % Triglycerides (2-149) mg/dL Cholesterol (50-199) mg/dL LDL Cholesterol Direct (50-130) mg/dL HDL Cholesterol (40-59) mg/dL Cholesterol/HDL Ratio % Urine Color Yellow (Yellow) Urine Turbidity Slightly-cloudy (Clear) Urine pH 6.0 (5.0-7.0) Ur Specific [place] 1.015 (1.003-1.030) Urine Protein 30 mg/dl (Negative) mg/dL Urine Glucose (UA) Neg (Negative) mg/dL Urine Ketones Neg (Negative) mg/dL Urine Blood Neg (Negative) Urine Nitrite Neg (Negative) Urine Bilirubin Neg (Negative) Urine Urobilinogen 2.0 (<2.0) mg/dL Ur Leukocyte Esterase Mod (Negative) Urine WBC (Auto) 20.0 H (0.0-6.0) /HPF Urine RBC (Auto) 2.0 (0.0-6.0) /HPF U Epithel Cells (Auto) 10.0 (0-13.0) /HPF Urine Mucus Few /HPF 05/23/18 05/23/18 05/23/18 Range/Units 14:35 16:48 19:49 WBC (4.5-11.0) K/mm3 RBC (3.65-5.03) M/mm3 Hgb (11.8-15.2) gm/dl Hct (35.5-45.6) % MCV (84-94) fl MCH (28-32) pg MCHC (32-34) % RDW (13.2-15.2) % Plt Count (140-440) K/mm3 Lymph % (Auto) (13.4-35.0) % [place] % (Auto) (0.0-7.3) % Eos % (Auto) (0.0-4.3) % Baso % (Auto) (0.0-1.8) % Lymph # (1.2-5.4) K/mm3 [place] # (0.0-0.8) K/mm3 Eos # (0.0-0.4) K/mm3 Baso # (0.0-0.1) K/mm3 Seg Neutrophils % (40.0-70.0) % Seg Neutrophils # (1.8-7.7) K/mm3 VBG pH (7.320-7.420) Sodium (137-145) mmol/L Potassium (3.6-5.0) mmol/L Chloride (98-107) mmol/L Carbon Dioxide (22-30) mmol/L Anion Gap mmol/L BUN (9-20) mg/dL Creatinine (0.8-1.5) mg/dL Estimated GFR ml/min BUN/Creatinine Ratio % Glucose (75-100) mg/dL POC Glucose 94 (70-105) Lactic Acid 0.90 (0.7-2.0) mmol/L Calcium (8.4-10.2) mg/dL Magnesium (1.7-2.3) mg/dL Total Bilirubin (0.1-1.2) mg/dL AST (5-40) units/L ALT (7-56) units/L Alkaline Phosphatase (35-129) units/L Total Creatine Kinase 188 H (55-170) units/L CK-MB (CK-2) 29.9 H (0.0-4.0) ng/mL CK-MB (CK-2) Rel Index 15.9 H (0-4) Troponin T (0.00-0.029) ng/mL Total Protein (6.3-8.2) g/dL Albumin (3.9-5) g/dL Albumin/Globulin Ratio % Triglycerides (2-149) mg/dL Cholesterol (50-199) mg/dL LDL Cholesterol Direct (50-130) mg/dL HDL Cholesterol (40-59) mg/dL Cholesterol/HDL Ratio % Urine Color (Yellow) Urine Turbidity (Clear) Urine pH (5.0-7.0) Ur Specific [place] (1.003-1.030) Urine Protein (Negative) mg/dL Urine Glucose (UA) (Negative) mg/dL Urine Ketones (Negative) mg/dL Urine Blood (Negative) Urine Nitrite (Negative) Urine Bilirubin (Negative) Urine Urobilinogen (<2.0) mg/dL Ur Leukocyte Esterase (Negative) Urine WBC (Auto) (0.0-6.0) /HPF Urine RBC (Auto) (0.0-6.0) /HPF U Epithel Cells (Auto) (0-13.0) /HPF Urine Mucus /HPF 05/24/18 Range/Units 05:43 WBC 8.3 (4.5-11.0) K/mm3 RBC 3.52 L (3.65-5.03) M/mm3 Hgb 9.9 L (11.8-15.2) gm/dl Hct 31.2 L (35.5-45.6) % MCV 89 (84-94) fl MCH 28 (28-32) pg MCHC 32 (32-34) % RDW 20.6 H (13.2-15.2) % Plt Count 451 H (140-440) K/mm3 Lymph % (Auto) 18.2 (13.4-35.0) % [place] % (Auto) 10.6 H (0.0-7.3) % Eos % (Auto) 2.7 (0.0-4.3) % Baso % (Auto) 1.4 (0.0-1.8) % Lymph # 1.5 (1.2-5.4) K/mm3 [place] # 0.9 H (0.0-0.8) K/mm3 Eos # 0.2 (0.0-0.4) K/mm3 Baso # 0.1 (0.0-0.1) K/mm3 Seg Neutrophils % 67.1 (40.0-70.0) % Seg Neutrophils # 5.6 (1.8-7.7) K/mm3 VBG pH (7.320-7.420) Sodium (137-145) mmol/L Potassium (3.6-5.0) mmol/L Chloride (98-107) mmol/L Carbon Dioxide (22-30) mmol/L Anion Gap mmol/L BUN (9-20) mg/dL Creatinine (0.8-1.5) mg/dL Estimated GFR ml/min BUN/Creatinine Ratio % Glucose (75-100) mg/dL POC Glucose (70-105) Lactic Acid (0.7-2.0) mmol/L Calcium (8.4-10.2) mg/dL Magnesium (1.7-2.3) mg/dL Total Bilirubin (0.1-1.2) mg/dL AST (5-40) units/L ALT (7-56) units/L Alkaline Phosphatase (35-129) units/L Total Creatine Kinase (55-170) units/L CK-MB (CK-2) (0.0-4.0) ng/mL CK-MB (CK-2) Rel Index (0-4) Troponin T (0.00-0.029) ng/mL Total Protein (6.3-8.2) g/dL Albumin (3.9-5) g/dL Albumin/Globulin Ratio % Triglycerides (2-149) mg/dL Cholesterol (50-199) mg/dL LDL Cholesterol Direct (50-130) mg/dL HDL Cholesterol (40-59) mg/dL Cholesterol/HDL Ratio % Urine Color (Yellow) Urine Turbidity (Clear) Urine pH (5.0-7.0) Ur Specific [place] (1.003-1.030) Urine Protein (Negative) mg/dL Urine Glucose (UA) (Negative) mg/dL Urine Ketones (Negative) mg/dL Urine Blood (Negative) Urine Nitrite (Negative) Urine Bilirubin (Negative) Urine Urobilinogen (<2.0) mg/dL Ur Leukocyte Esterase (Negative) Urine WBC (Auto) (0.0-6.0) /HPF Urine RBC (Auto) (0.0-6.0) /HPF U Epithel Cells (Auto) (0-13.0) /HPF Urine Mucus /HPF BMP 05/23/18 09:25 Sodium 140 Potassium 4.5 Chloride 104.4 Carbon Dioxide 21 L BUN 31 H Creatinine 1.3 Glucose 110 H Calcium 9.5 Cardiac Enzymes 05/23/18 05/23/18 05/23/18 Range/Units 09:25 12:54 14:35 Total Creatine Kinase 201 H 188 H (55-170) units/L CK-MB (CK-2) 33.8 H 29.9 H (0.0-4.0) ng/mL Troponin T 0.281 H* 0.209 H* D (0.00-0.029) ng/mL Liver Function 05/23/18 Range/Units 09:25 Total Bilirubin 0.70 (0.1-1.2) mg/dL AST 29 (5-40) units/L ALT 21 (7-56) units/L Alkaline Phosphatase 180 H (35-129) units/L Albumin 3.2 L (3.9-5) g/dL Urine 05/23/18 Range/Units 11:32 Urine Color Yellow (Yellow) Urine pH 6.0 (5.0-7.0) Ur Specific [place] 1.015 (1.003-1.030) Urine Protein 30 mg/dl (Negative) mg/dL Urine Glucose (UA) Neg (Negative) mg/dL - Imaging and Cardiology EKG: report reviewed Imaging and Cardiology: AP AND LATERAL SOFT TISSUES OF THE NECK: History: Trach placement. Severely limited exam particularly on the lateral view. A tracheostomy is in place with no discrete abnormality detected. IMPRESSION: Limited exam. No abnormality identified. Assessment and Plan Advance Directives: Yes (Full code) VTE prophylaxis?: Chemical Plan of care discussed with patient/family: Yes - Patient Problems (1) NSTEMI (non-ST elevated myocardial infarction) Current Visit: Yes Status: Acute Plan to address problem: Patient initiated on Heparin Cardiology consult in place CK mMB also elevated c/w NSTEMI (2) HTN (hypertension) Current Visit: Yes Status: Chronic Qualifiers: Hypertension type: essential hypertension Qualified Code(s): I10 - Essential (primary) hypertension Plan to address problem: Cont antihypertensives (3) Lactic acidosis Current Visit: Yes Status: Acute Plan to address problem: Mild Non specific Recent sepsis Normalized No abx (4) Tracheostomy in place Current Visit: Yes Status: Chronic Plan to address problem: Tracheostomy collar put in place in ED (5) History of CVA (cerebrovascular accident) Current Visit: Yes Status: Chronic Plan to address problem: Supportive care (6) A-fib Current Visit: Yes Status: Chronic Qualifiers: Atrial fibrillation type: chronic Qualified Code(s): I48.2 - Chronic atrial fibrillation Plan to address problem: On Eliquis (7) HLD (hyperlipidemia) Current Visit: Yes Status: Chronic Qualifiers: Hyperlipidemia type: mixed hyperlipidemia Qualified Code(s): E78.2 - Mixed hyperlipidemia Plan to address problem: On statins (8) DVT prophylaxis Current Visit: Yes Status: Acute Plan to address problem: On Eliquis and Gi prophylaxis
[2018-05-24] MEDS: NACL 0.9% 1000 ML 1,000 ML IV SCH (06:14)
[2018-05-24 06:24] LABS: Creatine Kinase MB 12.8 ng/mL (0.0-4.0)
[2018-05-24] MEDS ORDERED: PANCREAZE DR 10,500 UNIT FEEDTUBE PRN ×2 (06:26→13:53)
[2018-05-24] MEDS ORDERED: SODIUM BICARBONATE FEEDTUBE PRN ×2 (06:26→15:00)
[2018-05-24] MEDS ORDERED: SIMPLE SYRUP FEEDTUBE PRN ×4 (06:26→13:53)
[2018-05-24 06:27] LABS: Alanine Aminotransferase 15 units/L (7-56); Albumin 2.7 g/dL (3.9-5); BUN/Creatinine Ratio 22; Blood Urea Nitrogen 22 mg/dL (9-20); Calcium 8.8 mg/dL (8.4-10.2); Hemolysis Index 5
[2018-05-24 07:05] LABS: Hematocrit 30.5 % (35.5-45.6)
[2018-05-24 07:14] LABS: INR 1.58 (0.87-1.13)
[2018-05-24 07:15] LABS: Partial Thromboplastin Time 38.9 Sec. (24.2-36.6)
[2018-05-24] MEDS ORDERED: ROCEPHIN/NS 2 GM/100 ML 2 GM/100 ML BAG IV SCH (10:00)
[2018-05-24] MEDS: COLACE PO SCH ×2 (11:27→22:30)
[2018-05-24] MEDS: NORVASC PO SCH (11:28)
[2018-05-24] MEDS: CORDARONE PO SCH (11:28)
[2018-05-24] MEDS: LOPRESSOR PO SCH ×2 (11:28→22:28)
[2018-05-24] MEDS: PEPCID IV SCH ×2 (11:29→22:28)
[2018-05-24] MEDS: ELIQUIS PO SCH ×2 (11:29→22:28)
[2018-05-24] MEDS: PROzac PO SCH (11:29)
[2018-05-24] MEDS: MAG-OX PO SCH (11:29)
[2018-05-24] MEDS: SODIUM CHLORIDE FLUSH SYRINGE 10 ML IV SCH ×2 (11:30→22:29)
--- NOTE | 2018-05-24 12:11 | Progress Note ---
Assessment and Plan Await echo. Alex trending downwards and ECG this AM unchanged from prior with no acute ischemic changes. Pending echo reveals no gross abnormalities, will likely proceed with conservative cardiac management given that pt appears comfortable, is clinically stable and has multiple co-morbidities. The patient has been seen in conjunction with Dr. Lay who agrees with the assessment and plan of care. - Patient Problems (1) Abnormal ECG Current Visit: Yes Status: Acute (2) Elevated troponin Current Visit: Yes Status: Acute (3) UTI (urinary tract infection) Current Visit: Yes Status: Acute (4) Lactic acidosis Current Visit: Yes Status: Acute (5) History of CVA (cerebrovascular accident) Current Visit: Yes Status: Chronic (6) History of seizures Current Visit: Yes Status: Chronic (7) Tracheostomy in place Current Visit: Yes Status: Chronic (8) HTN (hypertension) Current Visit: Yes Status: Chronic Qualifiers: Hypertension type: essential hypertension Qualified Code(s): I10 - Essential (primary) hypertension Subjective Date of service: 05/24/18 Principal diagnosis: elevated trop Interval history: pt resting in bed, nonverbal, no apparent distress. in SR on telemetry. Objective Last Vital Signs Temp 98.0 F 05/24/18 11:03 Pulse 80 05/24/18 11:28 Resp 20 05/24/18 11:03 BP 145/83 05/24/18 11:28 Pulse Ox 99 05/24/18 11:03 - Physical Examination General: No Apparent Distress, Other (nonverbal) HEENT: Positive: PERRL, Normocephaly, Mucus Membranes Moist Neck: Positive: Other (trached ) Cardiac: Positive: Reg Rate and Rhythm, S1/S2 Lungs: Positive: Decreased Breath Sounds Neuro: Positive: Other (nonverbal, trached ) Abdomen: Negative: Tender Skin: Negative: Rash Musculoskeletal: No Pain Extremities: Present: edema (trace BLE ) - Labs and Meds Cardiac Enzymes 05/23/18 05/23/18 05/24/18 Range/Units 09:25 14:35 05:43 AST 24 (5-40) units/L CK-MB (CK-2) 33.8 H 29.9 H 12.8 H (0.0-4.0) ng/mL Coagulation 05/24/18 Range/Units 06:41 PT 19.8 H (12.2-14.9) Sec. INR 1.58 H (0.87-1.13) APTT 38.9 H (24.2-36.6) Sec. Lipids 05/23/18 Range/Units 09:25 Triglycerides 59 (2-149) mg/dL Cholesterol 112 (50-199) mg/dL HDL Cholesterol 57 (40-59) mg/dL Cholesterol/HDL Ratio 1.96 % CBC 05/24/18 05/24/18 Range/Units 05:43 06:41 WBC 8.3 (4.5-11.0) K/mm3 RBC 3.52 L (3.65-5.03) M/mm3 Hgb 9.9 L 10.0 L (11.8-15.2) gm/dl Hct 31.2 L 30.5 L (35.5-45.6) % Plt Count 451 H 447 H (140-440) K/mm3 Lymph # 1.5 (1.2-5.4) K/mm3 [place] # 0.9 H (0.0-0.8) K/mm3 Eos # 0.2 (0.0-0.4) K/mm3 Baso # 0.1 (0.0-0.1) K/mm3 Comprehensive Metabolic Panel 05/24/18 Range/Units 05:43 Sodium 143 (137-145) mmol/L Potassium 4.3 (3.6-5.0) mmol/L Chloride 110.2 H (98-107) mmol/L Carbon Dioxide 24 (22-30) mmol/L BUN 22 H (9-20) mg/dL Creatinine 1.0 (0.8-1.5) mg/dL Glucose 89 (75-100) mg/dL Calcium 8.8 (8.4-10.2) mg/dL AST 24 (5-40) units/L ALT 15 (7-56) units/L Alkaline Phosphatase 150 H (35-129) units/L Total Protein 7.2 (6.3-8.2) g/dL Albumin 2.7 L (3.9-5) g/dL - Imaging and Cardiology EKG: report reviewed Echo: pending - Telemetry EKG Rhythm: Sinus Rhythm - EKG Sinus rhythms and dysrhythmias: sinus rhythm Repolarization changes or abnormalities: ST or T wave suggestive of ischemia (t- wave inversions in lateral leads)
--- NOTE | 2018-05-24 17:36 | Progress Note ---
Assessment and Plan - Patient Problems (1) NSTEMI (non-ST elevated myocardial infarction) Current Visit: Yes Status: Acute Plan to address problem: Patient initiated on Heparin Cardiology consult in place CK mMB also elevated c/w NSTEMI (2) HTN (hypertension) Current Visit: Yes Status: Chronic Qualifiers: Hypertension type: essential hypertension Qualified Code(s): I10 - Essential (primary) hypertension Plan to address problem: Cont antihypertensives (3) Lactic acidosis Current Visit: Yes Status: Acute Plan to address problem: Mild Non specific Recent sepsis Normalized No abx (4) Tracheostomy in place Current Visit: Yes Status: Chronic Plan to address problem: Tracheostomy collar put in place in ED (5) History of CVA (cerebrovascular accident) Current Visit: Yes Status: Chronic Plan to address problem: Supportive care (6) A-fib Current Visit: Yes Status: Chronic Qualifiers: Atrial fibrillation type: chronic Qualified Code(s): I48.2 - Chronic atrial fibrillation Plan to address problem: On Eliquis (7) HLD (hyperlipidemia) Current Visit: Yes Status: Chronic Qualifiers: Hyperlipidemia type: mixed hyperlipidemia Qualified Code(s): E78.2 - Mixed hyperlipidemia Plan to address problem: On statins (8) DVT prophylaxis Current Visit: Yes Status: Acute Plan to address problem: On Eliquis and Gi prophylaxis Subjective Date of service: 05/24/18 Principal diagnosis: elevated trop Interval history: NSTEMI Objective - Exam Narrative Exam: Trach in place - Constitutional Vitals: Vital Signs - 12hr 05/24/18 05/24/18 05/24/18 06:46 08:06 08:15 Temperature 98.0 F 97.9 F Pulse Rate 78 41 L Respiratory 18 20 20 Rate Blood Pressure 134/79 145/91 Blood Pressure 141/53 [Left] O2 Sat by Pulse 99 95 Oximetry O2 Sat by Pulse Oximetry [ Assessment] 05/24/18 05/24/18 05/24/18 10:00 11:03 11:28 Temperature 98.0 F Pulse Rate 80 80 Respiratory 20 Rate Blood Pressure 145/83 145/83 Blood Pressure [Left] O2 Sat by Pulse 96 99 Oximetry O2 Sat by Pulse Oximetry [ Assessment] 05/24/18 05/24/18 13:00 15:57 Temperature 98.0 F Pulse Rate 74 Respiratory 20 Rate Blood Pressure 156/93 Blood Pressure [Left] O2 Sat by Pulse 100 Oximetry O2 Sat by Pulse 99 Oximetry [ Assessment] General appearance: Present: no acute distress, well-nourished - EENT Eyes: PERRL, EOM intact ENT: hearing intact, clear oral mucosa Ears: bilateral: normal - Neck Neck: supple, normal ROM - Respiratory Respiratory effort: normal Respiratory: bilateral: CTA - Breasts Breasts: normal - Cardiovascular Heart rate: 78 Rhythm: regular Heart Sounds: Present: S1 & S2. Absent: gallop, rub Extremities: no ischemia, pulses intact, No edema, normal color, Full ROM - Gastrointestinal General gastrointestinal: Present: soft, non-tender, non-distended, normal bowel sounds - Genitourinary Male genitourinary: normal - Integumentary Integumentary: clear, warm, dry - Musculoskeletal Musculoskeletal: generalized weakness - Neurologic Neurologic: focal deficits - Labs CBC & Chem 7: 05/24/18 06:41 05/24/18 05:43 Labs: Abnormal lab results 05/24/18 05/24/18 05/24/18 Range/Units 05:43 05:43 06:41 RBC 3.52 L (3.65-5.03) M/mm3 Hgb 9.9 L 10.0 L (11.8-15.2) gm/dl Hct 31.2 L 30.5 L (35.5-45.6) % RDW 20.6 H (13.2-15.2) % Plt Count 451 H 447 H (140-440) K/mm3 [place] % (Auto) 10.6 H (0.0-7.3) % [place] # 0.9 H (0.0-0.8) K/mm3 PT (12.2-14.9) Sec. INR (0.87-1.13) APTT (24.2-36.6) Sec. Chloride 110.2 H (98-107) mmol/L BUN 22 H (9-20) mg/dL Alkaline Phosphatase 150 H (35-129) units/L CK-MB (CK-2) 12.8 H (0.0-4.0) ng/mL CK-MB (CK-2) Rel Index 12.3 H (0-4) Troponin T 0.190 H* (0.00-0.029) ng/mL Albumin 2.7 L (3.9-5) g/dL 05/24/18 Range/Units 06:41 RBC (3.65-5.03) M/mm3 Hgb (11.8-15.2) gm/dl Hct (35.5-45.6) % RDW (13.2-15.2) % Plt Count (140-440) K/mm3 [place] % (Auto) (0.0-7.3) % [place] # (0.0-0.8) K/mm3 PT 19.8 H (12.2-14.9) Sec. INR 1.58 H (0.87-1.13) APTT 38.9 H (24.2-36.6) Sec. Chloride (98-107) mmol/L BUN (9-20) mg/dL Alkaline Phosphatase (35-129) units/L CK-MB (CK-2) (0.0-4.0) ng/mL CK-MB (CK-2) Rel Index (0-4) Troponin T (0.00-0.029) ng/mL Albumin (3.9-5) g/dL - Imaging and cardiology EKG: report reviewed
[2018-05-25] MEDS: NACL 0.9% 1000 ML 1,000 ML IV SCH (05:59)
[2018-05-25] MEDS: NORVASC PO SCH (09:36)
[2018-05-25] MEDS: PEPCID IV SCH (09:37)
[2018-05-25] MEDS: PROzac PO SCH (09:37)
[2018-05-25] MEDS: MAG-OX PO SCH (09:37)
[2018-05-25] MEDS: LOPRESSOR PO SCH (09:37)
[2018-05-25] MEDS: CORDARONE PO SCH (09:37)
--- NOTE | 2018-05-25 11:02 | Progress Note ---
Assessment and Plan Echo reviewed - EF 45-50%, septal wall hypertrophy observed. Alex trending downwards and serial ECGs with no acute ischemic changes. Will proceed with conservative cardiac management given that pt appears comfortable, is clinically stable and has multiple co-morbidities. Per primary, pt has reported history of AFib and is anticoagulated on eliquis. Review of telemetry shows only NSR. Nothing further to add from cardiac perspective at this time. Will follow on as needed basis. Recommend follow up in our office with Frannie Stephens NP, within 2 weeks of hospital discharge ([phone]). The patient has been seen in conjunction with Dr. Lay who agrees with the assessment and plan of care. - Patient Problems (1) Abnormal ECG Current Visit: Yes Status: Acute (2) Elevated troponin Current Visit: Yes Status: Acute (3) UTI (urinary tract infection) Current Visit: Yes Status: Acute (4) Lactic acidosis Current Visit: Yes Status: Acute (5) History of CVA (cerebrovascular accident) Current Visit: Yes Status: Chronic (6) History of seizures Current Visit: Yes Status: Chronic (7) Tracheostomy in place Current Visit: Yes Status: Chronic (8) HTN (hypertension) Current Visit: Yes Status: Chronic Qualifiers: Hypertension type: essential hypertension Qualified Code(s): I10 - Essential (primary) hypertension Subjective Date of service: 05/25/18 Principal diagnosis: elevated trop Interval history: pt resting in bed, nonverbal, no apparent distress. in SR on telemetry. Objective Last Vital Signs Temp 97.9 F 05/25/18 08:02 Pulse 76 05/25/18 08:02 Resp 20 05/25/18 08:02 BP 152/86 05/25/18 08:02 Pulse Ox 94 05/25/18 08:02 - Physical Examination General: No Apparent Distress, Other (nonverbal) HEENT: Positive: PERRL, Normocephaly, Mucus Membranes Moist Neck: Positive: Other (trached ) Cardiac: Positive: Reg Rate and Rhythm, S1/S2 Lungs: Positive: Decreased Breath Sounds Neuro: Positive: Other (nonverbal, trached ) Abdomen: Negative: Tender Skin: Negative: Rash Musculoskeletal: No Pain Extremities: Present: edema (trace BLE ) - Imaging and Cardiology EKG: report reviewed Echo: pending - EKG Sinus rhythms and dysrhythmias: sinus rhythm Repolarization changes or abnormalities: ST or T wave suggestive of ischemia (t- wave inversions in lateral leads)
[2018-05-25 12:05] VITALS: BP 140/77
--- NOTE | 2018-05-25 12:43 | Discharge Summary ---
Providers - Providers Date of Admission: 05/23/18 13:54 Date of discharge: 05/25/18 Attending physician: EVELYNE MOORE 05/23/18 12:57 Consult to Physician [CONS] Urgent Comment: Consulting Provider: JAMIE COULTER Physician Instructions: Reason For Exam: lat t wave inv, elevated trop 05/23/18 15:55 Consult to Dietitian/Nutrition [CONS] Routine Physician Instructions: Reason For Exam: Reason for Consult: Write/Manage Tube Feeding Consult to Wound/ET Nurse [CONS] Routine Reason For Exam: wound eval 05/24/18 06:26 Consult to Dietitian/Nutrition [CONS] Routine Physician Instructions: Assess nutrtn needs, initiate, modify, manage TF Reason For Exam: Reason for Consult: Write/Manage Tube Feeding Reason for Consult: Write/Manage Tube Feeding Primary care physician: [employer] Hospitalization Condition: Stable Hospital course: Assessment and Plan Echo reviewed - EF 45-50%, septal wall hypertrophy observed. Alex trending downwards and serial ECGs with no acute ischemic changes. Will proceed with conservative cardiac management given that pt appears comfortable, is clinically stable and has multiple co-morbidities. Review of telemetry shows only NSR. -Will d/c Eliquis - Patient Problems (1) Abnormal ECG Current Visit: Yes Status: Acute (2) Elevated troponin Current Visit: Yes Status: Acute (3) UTI (urinary tract infection) Current Visit: Yes Status: Acute (4) Lactic acidosis Current Visit: Yes Status: Acute (5) History of CVA (cerebrovascular accident) Current Visit: Yes Status: Chronic (6) History of seizures Current Visit: Yes Status: Chronic (7) Tracheostomy in place Current Visit: Yes Status: Chronic (8) HTN (hypertension) Current Visit: Yes Status: Chronic Qualifiers: Hypertension type: essential hypertension Qualified Code(s): I10 - Essential (primary) hypertension Disposition: DC/TX-03 [facility] CERT Core Measure Documentation - Palliative Care Palliative Care/ Comfort Measures: Not Applicable - Core Measures Any of the following diagnoses?: none Exam - Physical Exam Narrative exam: Trach in place - Constitutional Vitals: Temp Pulse Resp BP Pulse Ox 98.1 F 66 18 140/77 98 05/25/18 12:03 05/25/18 12:03 05/25/18 12:03 05/25/18 12:03 05/25/18 12:03 General appearance: Present: no acute distress, well-nourished - EENT Eyes: Present: PERRL ENT: hearing intact, clear oral mucosa - Neck Neck: Present: supple, normal ROM - Respiratory Respiratory effort: normal Respiratory: bilateral: CTA - Cardiovascular Heart rate: 78 Rhythm: regular Heart Sounds: Present: S1 & S2. Absent: rub, click - Extremities Extremities: no ischemia, pulses intact, pulses symmetrical, No edema Peripheral Pulses: within normal limits - Abdominal General gastrointestinal: Present: soft, non-tender, non-distended, normal bowel sounds Male genitourinary: Present: normal - Integumentary Integumentary: Present: clear, warm, dry - Musculoskeletal Musculoskeletal: generalized weakness, other (Aphasic) - Psychiatric Psychiatric: depressed - Neurologic Neurologic: CNII-XII intact, moves all extremities - Allied Health Allied health notes reviewed: nursing, case management Plan Diet: other Follow up with: PRIMARY CARE, [Primary Care Provider] - 7 Days
== END 2018-05-25 16:22 | DRG 280 ==
LOC: ED 07:36 → 4A 13:54
PROVIDERS: ADMIT Internal Medicine; ATTEND Internal Medicine
DX: I21.4 Non-ST elevation (NSTEMI) myocardial infarction (principal); E43 Unspecified severe protein-calorie malnutrition; N39.0 Urinary tract infection, site not specified; E87.2 Acidosis; R74.8 Abnormal levels of other serum enzymes; R94.31 Abnormal electrocardiogram [ECG] [EKG]; I48.91 Unspecified atrial fibrillation; E78.2 Mixed hyperlipidemia; I50.9 Heart failure, unspecified; I11.0 Hypertensive heart disease with heart failure; Z93.0 Tracheostomy status; Z68.27 Body mass index [BMI] 27.0-27.9, adult; Z86.73 Personal history of transient ischemic attack (TIA), and cerebral infarction without residual deficits; Z79.01 Long term (current) use of anticoagulants; Z93.1 Gastrostomy status; Z79.899 Other long term (current) drug therapy
CPT/HCPCS: 36415; 51701; 70360; 71045; 80053; 80061; 81001; 82140; 82550; 82553; 82805; 82962; 83735; 84484; 85014; 85018; 85025; 85049; 85610; 85730; 87040; 87086; 87116; 93005; 93010; 93306; 94760; 96361; 96365; 96375; A9270-GY; J0696; J7030

== ENCOUNTER 2018-05-29 07:42 | Emergency (ER) | payer MEDICARE ==
--- NOTE | 2018-05-29 09:26 | Emergency Department Report ---
ED CPR HPI - General Chief Complaint: Cardiac Arrest/CPR Stated Complaint: CARDIAC ARREST Time Seen by Provider: 05/29/18 08:48 Source: EMS Mode of arrival: Stretcher Limitations: Other - History of Present Illness Initial Comments: 7-year-old man who is in apparent end-stage patient of a fdc with tracheostomy and feeding tube. He has not been resuscitated despite 40 minutes of ACLS. He was found in asystole per EMS. Endotracheal intubation was successful as well as placement of an IO catheter. The patient remained in asystole at all times and arrived in asystole. Paramedics appreciated no signs of life. Pupils were fixed and dilated. Complaint: found unresponsive -: minute(s) Place: IN/SNF Initial Findings in the Field: systole (asystole) ROSC in the Field: No - Related Data Home Medications Medication Instructions Recorded Confirmed Last Taken Amiodarone [Cordarone 200 MG TAB] 200 mg PO DAILY 05/23/18 05/23/18 Unknown Amlodipine Besylate [Norvasc] 10 mg PO DAILY 05/23/18 05/23/18 Unknown Collagenase [Santyl] 1 applicatio TP QDAY 05/23/18 05/23/18 Unknown FLUoxetine HCL [FLUoxetine] 20 mg PO DAILY 05/23/18 05/23/18 Unknown Magnesium Oxide [Mag-Ox] 400 mg PO QDAY 05/23/18 05/23/18 Unknown Metoprolol Tartrate 25 mg PO BID 05/23/18 05/23/18 Unknown Omeprazole 20 mg PO DAILY 05/23/18 05/23/18 Unknown Scopolamine [Transderm-Scop] 1 each TD Q3D 05/23/18 05/23/18 Unknown oxyCODONE /ACETAMINOPHEN [Percocet 1 tab PO Q6HR PRN 05/23/18 05/23/18 Unknown 5/325] Previous Rx's Medication Instructions Recorded Last Taken Type Docusate Sodium [Colace ORAL LIQ] 50 mg PO BID oral.liqd 05/25/18 Unknown Rx FLUoxetine [PROzac] 20 mg PO QDAY capsule 05/25/18 Unknown Rx Lipase/Protease/Amylase [Pancreaze 1 each FEEDTUBE PRN PRN capsule 05/25/[address] 10,500 Unit] Magnesium Oxide [Mag-Ox] 400 mg PO QDAY tablet 05/25/18 Unknown Rx Metoprolol [Lopressor TAB] 25 mg PO BID tablet 05/25/18 Unknown Rx Simple Syrup 30 ml FEEDTUBE PRN PRN oral.liqd 05/25/18 Unknown Rx oxyCODONE /ACETAMINOPHEN [Percocet 1 tab PO Q6H PRN tablet 05/25/18 Unknown Rx 5/325 mg] Allergies Allergy/AdvReac Type Severity Reaction Status Date / Time No Known Allergies Allergy Unverified 04/27/18 16:07 ED Review of Systems ROS: Stated complaint: CARDIAC ARREST Other details as noted in HPI Comment: Unobtainable due to pts medical conditions ED Past Medical Hx - Past Medical History Hx Hypertension: Yes Hx CVA: Yes Hx Congestive Heart Failure: Yes Hx Renal Disease: Yes Hx Seizures: Yes Additional medical history: Atrial fibrillation - Surgical History Additional Surgical History: Tracheostomy, PEG tube - Social History Smoking Status: Never Smoker - Medications Home Medications: Home Medications Medication Instructions Recorded Confirmed Last Taken Type Amiodarone [Cordarone 200 MG TAB] 200 mg PO DAILY 05/23/18 05/23/18 Unknown History Amlodipine Besylate [Norvasc] 10 mg PO DAILY 05/23/18 05/23/18 Unknown History Collagenase [Santyl] 1 applicatio TP QDAY 05/23/18 05/23/18 Unknown History FLUoxetine HCL [FLUoxetine] 20 mg PO DAILY 05/23/18 05/23/18 Unknown History Magnesium Oxide [Mag-Ox] 400 mg PO QDAY 05/23/18 05/23/18 Unknown History Metoprolol Tartrate 25 mg PO BID 05/23/18 05/23/18 Unknown History Omeprazole 20 mg PO DAILY 05/23/18 05/23/18 Unknown History Scopolamine [Transderm-Scop] 1 each TD Q3D 05/23/18 05/23/18 Unknown History oxyCODONE /ACETAMINOPHEN [Percocet 1 tab PO Q6HR PRN 05/23/18 05/23/18 Unknown History 5/325] Docusate Sodium [Colace ORAL LIQ] 50 mg PO BID oral.liqd 05/25/18 Unknown Rx FLUoxetine [PROzac] 20 mg PO QDAY capsule 05/25/18 Unknown Rx Lipase/Protease/Amylase [Pancreaze 1 each FEEDTUBE PRN PRN capsule 05/25/[address],500 Unit] Magnesium Oxide [Mag-Ox] 400 mg PO QDAY tablet 05/25/18 Unknown Rx Metoprolol [Lopressor TAB] 25 mg PO BID tablet 05/25/18 Unknown Rx Simple Syrup 30 ml FEEDTUBE PRN PRN oral.liqd 05/25/18 Unknown Rx oxyCODONE /ACETAMINOPHEN [Percocet 1 tab PO Q6H PRN tablet 05/25/18 Unknown Rx 5/325 mg] ED Physical Exam - General Limitations: Other - Head Head exam: Present: atraumatic - Eye Pupils: Present: other (fixed dilated) - Neck Neck exam: Present: other (tracheostomy) - Respiratory Respiratory exam: Present: normal lung sounds bilaterally (breath sounds are present with ambu assist) - Cardiovascular Cardiovascular Exam: Present: other (no heart sounds) - GI/Abdominal GI/Abdominal exam: Absent: distended - Extremities Exam Extremities exam: Present: other (IO catheter in place) - Neurological Exam Neurological exam: Present: other (apparent brain ) - Skin Skin exam: Present: pallor ED Course - Reevaluation(s) Reevaluation #1: Further resuscitative efforts were deemed futile. The patient was pronounced DOA. Family will be counseled should they arrive. 05/29/18 09:27 Critical care attestation.: If time is entered above; I have spent that time in minutes in the direct care of this critically ill patient, excluding procedure time. ED Disposition Clinical Impression: Cardiac arrest Disposition: DC-20 Is pt being admited?: No Does the pt Need Aspirin: No Condition: Stable Referrals: PRIMARY CARE, [Primary Care Provider] - 3-5 Days Time of Disposition: 09:28
== END 2018-05-29 10:55 ==
LOC: ED 07:42
DX: I46.9 Cardiac arrest, cause unspecified (principal); I11.0 Hypertensive heart disease with heart failure; I50.9 Heart failure, unspecified; I48.91 Unspecified atrial fibrillation; Z86.73 Personal history of transient ischemic attack (TIA), and cerebral infarction without residual deficits
CPT/HCPCS: 99285